=== PATIENT | female | born 1975 | race Caucasian/White ===

== ENCOUNTER 2020-02-07 12:43 | Emergency (ER) | payer OTHER, SELFPAY ==
[2020-02-07 13:00] VITALS: BP 134/81; PULSE 75; RESP 16; TEMP 37.4; O2SAT 98
--- NOTE | 2020-02-07 13:05 | ED.GENADULT ---
HPI - General Adult General Chief complaint: Skin/Abscess/Foreign Body Stated complaint: rash on face Time Seen by Provider: 02/07/20 13:05 Source: patient and RN notes reviewed Mode of arrival: ambulatory Limitations: no limitations History of Present Illness HPI narrative: 44-year-old female presents with complaints of recurrent rash to face with swelling, itching, and redness for 1 day. [place] says 15 days ago had similar rash and took a 10 course of Prednisone with good relief. Outside yesterday, possible bitten by an insect. Started using a new facial make-up prior to facial rash, says she has stopped used prior to Prednisone treatment. No new laundry detergent. No new foods or medications. No burning, bleeding, or drainage. Denies fever, chills, headaches, weakness, fatigue, myalgia, or tongue swelling. [place] denies being , LMP 2 weeks. The patient reports she have not been diagnosed with COVID-19. The patient reports she is not waiting for the results of a COVID-19 lab test. The patient reports she do not have fever or chills. The patient reports she do not have a new or worsening cough or shortness of breath. Denies chest pain. The patient reports she do not have any rhinorrhea, congestion, sore throat, nausea, vomiting, abdominal pain, and diarrhea. Tolerating po intake well. Denies recent traveling. Denies concerns for COVID-19 or exposures been home since [id number] order except for essential household needs and return home. At this time, patient is not suspected of having COVID-19. Some parts of this dictation were generated by voice recognition software and may contain typographical and/or grammatical inaccuracies. Related Data Allergies Allergy/AdvReac Type Severity Reaction Status Date / Time No Known Allergies Allergy Verified 07/24/11 12:50 Review of Systems Review of Systems: Narrative: CONSTITUTIONAL: Denies fever, chills, sweats. EYES: Denies visual changes, redness, discharge. ENT: Denies rhinorrhea, congestion, sore throat, otalgia. CARDIOVASCULAR: Denies chest pain, palpitations, edema. RESPIRATORY: Denies dyspnea, wheezing, cough. GASTROINTESTINAL: Denies abdominal pain, nausea, vomiting, diarrhea. GENITOURINARY: Denies dysuria, hematuria, abnormal discharge. SKIN: Complains of recurrent rash to face with swelling, itching, and redness. Denies drainage. MUSCULOSKELETAL: Denies acute back pain, joint pain, or myalgia. NEUROLOGIC: Denies numbness or focal weakness. PSYCHIATRIC: Denies anxiety or depression. All systems reviewed & are unremarkable except as noted in HPI and below. [facility] Past Medical History Medical History (Updated 02/08/20 @ 00:00 by Ranjith Rojas) No significant past medical history Uterine polyp Surgical History Surgical History (Updated 02/07/20 @ 13:22 by INNA Mccarty) History of cervical polypectomy History of cholecystectomy Family History Family History (Updated 02/07/20 @ 13:23 by INNA Mccarty) Father History of ETOH abuse Mother Leukemia Other Family history of cardiovascular disease Social History Social History (Updated 02/07/20 @ 13:23 by INNA Mccarty) Smoking status: Never smoker Tobacco type: cigarettes Second hand tobacco smoke exposure: No Alcohol intake: current Substance use: never Living arrangements: with family Gender identity (if verbalized by the patient): Female Comments At time of signature, agree with nurse past medical, surgical, social, and family history. There is no relevant family history pertinent to the presenting complaint. Exam Narrative: Exam Narrative: GENERAL: This is a well-nourished, well-developed patient, in no apparent distress. Talking in full sentences without deficit and ambulate with steady gait without dyspnea. HEAD: normocephalic, atraumatic. EYES: PERRL. Sclera clear/white. Vision is grossly intact. THROAT: Mucous membranes mo
== END 2020-02-07 13:41 | disposition home or self-care (01) ==
PROVIDERS: Emergency Provider Nurse Practitioner Family
DX: T78.40XA Allergy, unspecified, initial encounter (principal)
CPT/HCPCS: 99203; G0463